=== PATIENT | male | born 1995 | race Caucasian/White ===

== ENCOUNTER 2016-10-03 09:32 | Inpatient (IN) | payer SELFPAY ==
[2016-10-03 10:31] VITALS: BMI 22.1
--- NOTE | 2016-10-03 11:39 | HP ---
COWS - Scale Resting Pulse: 1= [place] 81-100 Sweatin=Flushed/Facial Moisture Restless Observation: 3= Extraneous Movement Pupil Size: 2= Moderately Dilated Bone or Joint Aches: 2= Severe Diffuse Aches Runny Nose/ Eye Tearin= Runny Nose/Eyes GI Upset > 30mins: 3= Vomiting/Diarrhea Tremor Observation: 2= Slight Tremor Visible Yawning Observation: 2= >3x During Session Anxiety or Irritability: 2=Irritable/Anxious Goose Flesh Skin: 0=Smooth Skin COWS Score: 21 CIWA Score - CIWA Score Nausea/Vomitin Muscle Tremors: 3 Anxiety: 3 Agitation: 3 Paroxysmal Sweats: 2 Orientation: 0-Oriented Tacttile Disturbances: 2-Mild Itch/Numbness/Burn Auditory Disturbances: 2-Mild Harshness/Frighten Visual Disturbances: 2-Mild Sensitivity Headache: 2-Mild CIWA-Ar Total Score: 22 Admission ROS BHS - HPI Chief Complaint: i need help to stop using heroin,xanax,marijuana Allergies/Adverse Reactions: Allergies Allergy/AdvReac Type Severity Reaction Status Date / Time No Known Allergies Allergy Verified 10/03/16 11:37 History of Present Illness: this 21 years old male with heroin,xanax and marijuana dependence,withdrawal symptom,seek help for setox,never been in detox before nicotine dependence denied medical problem Exam Limitations: No Limitations - Ebola screening Have you traveled outside of the country in the last 21 days: No Have you had contact with anyone from an Ebola affected area: No Have you been sick,other than usual withdrawal symptoms: No - Review of Systems Constitutional: Chills, Diaphoresis, Loss of Appetite, Night Sweats, Changes in sleep, Weakness EENT: reports: Tearing, Nose Congestion Respiratory: reports: No Symptoms reported Cardiac: reports: Palpitations GI: reports: Diarrhea, Nausea, Vomiting, Abdominal cramping : reports: No Symptoms Reported Musculoskeletal: reports: Back Pain, Joint Pain, Muscle Pain, Joint Stiffness Integumentary: reports: Dryness Neuro: reports: Headache, Tremors Endocrine: reports: No Symptoms Reported Hematology: reports: No Symptoms Reported Psychiatric: reports: No Sypmtoms Reported Patient History - Patient Medical History Hx Anemia: No Hx Asthma: No Hx Chronic Obstructive Pulmonary Disease (COPD): No Hx Cancer: No Hx Cardiac Disorders: No Hx Congestive Heart Failure: No Hx Hypertension: No Hx Hypercholesterolemia: No Hx Pacemaker: No HX Cerebrovascular Accident: No Hx Seizures: No Hx Dementia: No Hx Diabetes: No Hx Gastrointestinal Disorders: No Hx Liver Disease: No Hx Genitourinary Disorders: No Hx Sexually Transmitted Disorders: No Hx Renal Disease (ESRD): No Hx Thyroid Disease: No Hx Human Immunodeficiency Virus (HIV): (never been tested) Hx Hepatitis C: No Hx Depression: No Hx Suicide Attempt: No Hx Bipolar Disorder: No Hx Schizophrenia: No Other Medical History: no suicidal,no homicidal - Patient Surgical History Past Surgical History: No - PPD History Previous Implant?: Yes Documented Results: Negative w/o proof Implanted On Prior [facility] Admission?: No PPD to be Administered?: Yes - Smoking Cessation Smoking history: Current every day smoker Have you smoked in the past 12 months: Yes Aproximately how many cigarettes per day: 20 Cigars Per Day: 0 Hx Chewing Tobacco Use: No Initiated information on smoking cessation: Yes 'Breaking Loose' booklet given: 10/03/16 - Substance & Tx. History Hx Alcohol Use: No Hx Substance Use: Yes Substance Use Type: Cocaine, Heroin, Tranquilizers Hx Substance Use Treatment: No - Substances Abused Heroin Route: Inhalation Frequency: Daily Amount used: 4 bags Age of first use: 20 Date of Last Use: 10/03/16 Xanax Route: Oral Frequency: 3-6 times per week Amount used: 2 mg. Age of first use: 20 Date of Last Use: 10/02/16 Marijuana Route: Smoking Frequency: Daily Amount used: $20 Age of first use: 16 Date of Last Use: 10/02/16 Family Disease History - Family Disease History Family History: Denies Admission Physical Exam S - Vital Signs Vital Signs: Vital Signs - 24 hr 10/03/16 10:30 Temperature 97 F L Pulse Rate 99 H Respiratory 20 Rate Blood Pressure 138/87 - Physical General Appearance: Yes: Moderate Distress, Tremorous, Irritable, Sweating, Anxious HEENTM: Yes: Hearing grossly Normal, Normal ENT Inspection, MICHELLE, Pharynx Normal Respiratory: Yes: Lungs Clear, Normal Breath Sounds, No Respiratory Distress Neck: Yes: Within Normal Limits Breast: Yes: Within Normal Limits Cardiology: Yes: Within Normal Limits, Regular Rhythm, Regular Rate, S1, S2 Abdominal: Yes: Within Normal Limits, Normal Bowel Sounds, Non Tender, Flat, Soft Genitourinary: Yes: Within Normal Limits Back: Yes: Muscle Spasm Musculoskeletal: Yes: Within Normal Limits, full range of Motion, Back pain, Muscle Pain Extremities: Yes: Normal Inspection, Normal Range of Motion, Tremors Neurological: Yes: senior payroll specialist II-XII NML intact, Fully Oriented, Alert, Motor Strength 5/5 Integumentary: Yes: Dry Lymphatic: Yes: Within Normal Limits - Diagnostic (1) Opioid dependence with withdrawal Current Visit: Yes Status: Acute (2) Uncomplicated sedative, hypnotic or anxiolytic withdrawal Current Visit: Yes Status: Acute (3) Cannabis dependence Current Visit: Yes Status: Acute (4) Nicotine dependence Current Visit: Yes Status: Acute Cleared for Admission [facility] - Detox or Rehab [facility] Level of Care: Medically Managed Detox Regimen/Protocol: Methadone/Valium [facility] Breath Alcohol Content Breath Alcohol Content: 0 Urine Drug Screen - Results Drug Screen Negative: No Urine Drug Screen Results: THC-Marijuana, ANNE MARIE-Cocaine, OPI-Opiates, BZO- Benzodiazepines
[2016-10-03] MEDS ORDERED: guaiFENesin/D-METHORPHAN HB 10 ML UNIT-DOSE CUPS PO PRN (13:14)
[2016-10-03] MEDS ORDERED: MENTHOL/PHENOL 1 EACH UD MM PRN (13:14)
[2016-10-03] MEDS ORDERED: LOPERAMIDE HCL 2 MG CAPSULE PO PRN (13:14)
[2016-10-03] MEDS ORDERED: IBUPROFEN 400 MG TABLET (FP) PO PRN (13:14)
[2016-10-03] MEDS ORDERED: P-EPHED 60MG/TRIPROLIDI 2.5MG TABLET PO PRN (13:14)
[2016-10-03] MEDS ORDERED: MAG HYDROX/AL HYDROX/SIMETH 30 ML UNIT-DOSE CUP PO PRN (13:14)
[2016-10-03] MEDS ORDERED: MAGNESIUM CITRATE 300 ML BOTTLE PO PRN (13:14)
[2016-10-03] MEDS ORDERED: ACETAMINOPHEN 325 MG TABLET (FP) PO PRN (13:14)
[2016-10-03] MEDS ORDERED: MAGNESIUM HYDROX 2400MG/30ML ORAL SUSPENSION 30 ML CUP PO PRN (13:14)
[2016-10-03] MEDS ORDERED: hydrOXYzine PAMOATE 50 MG CAPSULE (FP) PO PRN (13:14)
[2016-10-03] MEDS: diazePAM 5 MG TABLET PO SCH ×2 (13:59→22:36)
[2016-10-03] MEDS: NICOTINE 21 MG/24 HOURS TOPICAL PATCH TD SCH (13:59)
[2016-10-03] MEDS ORDERED: diazePAM 5 MG TABLET PO ONE (14:00)
[2016-10-03] MEDS ORDERED: METHADONE HCL 10 MG TABLET (FOR DETOX USE ONLY) PO ONE ×2 (14:00→23:00)
[2016-10-03 16:27] LABS: MCH 30.1 pg (25.7-33.7); MCHC 33.1 g/dl (32.0-35.9); MEAN CELL VOLUME 91.1 fl (80-96); MEAN PLT VOLUME 9.9 fl (7.5-11.1); PLATELET COUNT 231 K/MM3 (134-434); RDW 13.3 % (11.9-15.9); WHITE BLOOD COUNT 11.6 K/mm3 (4.0-10.0)
[2016-10-03 16:37] LABS: ALBUMIN 4.1 g/dl (3.4-5.0); ALK PHOS 90 U/L (45-117); ANION GAP 9 (8-16); BILIRUBIN,TOTAL 0.3 mg/dL (0.2-1.0); CO2 27 mmol/L (21-32); COCKROFT - GAULT 139.38; CREATININE 0.8 mg/dL (0.7-1.3); GLUCOSE,RANDOM 129 mg/dL (74-106); SGOT/AST 63 U/L (15-37); SGPT/ALT 87 U/L (12-78); TOT PROT 7.3 g/dl (6.4-8.2)
[2016-10-03 17:04] LABS: URINE APPEARANCE CLOUDY; URINE BILIRUBIN NEGATIVE (NEGATIVE); URINE BLOOD NEGATIVE (NEGATIVE); URINE COLOR YELLOW; URINE GLUCOSE (UA) NEGATIVE (NEGATIVE); URINE KETONE NEGATIVE (NEGATIVE); URINE LEUK ESTERASE NEGATIVE (NEGATIVE); URINE NITRITE NEGATIVE (NEGATIVE); URINE UROBILINOGEN NEGATIVE E.U./dl (0.2-1.0)
[2016-10-03 17:05] LABS: URINE PROTEIN 1+ (NEGATIVE)
[2016-10-03] MEDS: diazePAM 5 MG TABLET PO PRN (17:37)
[2016-10-03] MEDS: NICOTINE POLACRILEX 2 MG GUM BC PRN (17:38)
[2016-10-03 17:42] LABS: URINE BACTERIA RARE /hpf (NONE SEEN); URINE MUCUS RARE; URINE RBC 8 /hpf (0-3); URINE WBC 14 /hpf (3-5); YEAST MANY
[2016-10-03] MEDS: THIAMINE HCL 100 MG TABLET (FP) PO SCH (22:36)
[2016-10-03] MEDS: diphenhydrAMINE HCL 50 MG CAPSULE PO PRN (22:37)
[2016-10-04] MEDS: diazePAM 5 MG TABLET PO PRN ×2 (05:30→10:31)
[2016-10-04] MEDS: diazePAM 5 MG TABLET PO SCH ×3 (05:45→22:23)
[2016-10-04] MEDS ORDERED: METHADONE HCL 10 MG TABLET (FOR DETOX USE ONLY) PO SCH (10:00)
[2016-10-04] MEDS: PRENATAL VITAMINS W/ FOLIC ACID TABLET (FP) PO SCH (10:35)
[2016-10-04] MEDS: NICOTINE 21 MG/24 HOURS TOPICAL PATCH TD SCH (10:35)
--- NOTE | 2016-10-04 10:38 | PN ---
[facility] CIWA - CIWA Score Nausea/Vomitin-No Nausea/No Vomiting Muscle Tremors: 4-Moderate,w/Arms Extend Anxiety: 3 Agitation: 3 Paroxysmal Sweats: 3 Orientation: 0-Oriented Tacttile Disturbances: 0-None Auditory Disturbances: 0-None Visual Disturbances: 0-None Headache: 0-None Present CIWA-Ar Total Score: 13 [facility] COWS - Scale Resting Pulse: 1= [place] 81-100 Sweatin=Flushed/Facial Moisture Restless Observation: 1= Difficult to Sit Still Pupil Size: 0= Normal to Room Light Bone or Joint Aches: 1= Mild Discomfort Runny Nose/ Eye Tearin= Runny Nose/Eyes GI Upset > 30mins: 2= Nausea/Diarrhea Tremor Observation of Outstretched Hands: 2= Slight Tremor Visible Yawning Observation: 1= 1-2x During Session Anxiety or Irritability: 2=Irritable/Anxious Goose Flesh Skin: 0=Smooth Skin COWS Score: 14 [facility] Progress Note (SOAP) Subjective: Anxiety,tremors,sweating,interrupted sleep,restless,muscle aches. Objective: 10/04/16 10:36 Last Vital Signs Temp Pulse Resp BP Pulse Ox 97.4 F L 91 H 20 145/84 10/04/16 09:25 10/04/16 09:25 10/04/16 09:25 10/04/16 09:25 Laboratory Last Values WBC 11.6 K/mm3 (4.0-10.0) H 10/03/16 10:00 RBC 4.94 M/mm3 (4.00-5.60) 10/03/16 10:00 Hgb 14.9 GM/dL (11.7-16.9) 10/03/16 10:00 Hct 45.0 % (35.4-49) 10/03/16 10:00 MCV 91.1 fl (80-96) 10/03/16 10:00 MCHC 33.1 g/dl (32.0-35.9) 10/03/16 10:00 RDW 13.3 % (11.9-15.9) 10/03/16 10:00 Plt Count 231 K/MM3 (134-434) 10/03/16 10:00 MPV 9.9 fl (7.5-11.1) 10/03/16 10:00 Sodium 141 mmol/L (136-145) 10/03/16 10:00 Potassium 4.3 mmol/L (3.5-5.1) 10/03/16 10:00 Chloride 105 mmol/L (98-107) 10/03/16 10:00 Carbon Dioxide 27 mmol/L (21-32) 10/03/16 10:00 Anion Gap 9 (8-16) 10/03/16 10:00 BUN 9 mg/dL (7-18) 10/03/16 10:00 Creatinine 0.8 mg/dL (0.7-1.3) 10/03/16 10:00 Creat Clearance w eGFR > 60 (>60) 10/03/16 10:00 Random Glucose 129 mg/dL (74-106) H 10/03/16 10:00 Calcium 9.0 mg/dL (8.5-10.1) 10/03/16 10:00 Total Bilirubin 0.3 mg/dL (0.2-1.0) 10/03/16 10:00 AST 63 U/L (15-37) H 10/03/16 10:00 ALT 87 U/L (12-78) H 10/03/16 10:00 Alkaline Phosphatase 90 U/L (45-117) 10/03/16 10:00 Total Protein 7.3 g/dl (6.4-8.2) 10/03/16 10:00 Albumin 4.1 g/dl (3.4-5.0) 10/03/16 10:00 Urine Color Yellow 10/03/16 15:00 Urine Appearance Cloudy 10/03/16 15:00 Urine pH 7.0 (5.0-8.0) 10/03/16 15:00 Ur Specific [place] 1.020 (1.001-1.035) 10/03/16 15:00 Urine Protein 1+ (NEGATIVE) H 10/03/16 15:00 Urine Glucose (UA) Negative (NEGATIVE) 10/03/16 15:00 Urine Ketones Negative (NEGATIVE) 10/03/16 15:00 Urine Blood Negative (NEGATIVE) 10/03/16 15:00 Urine Nitrite Negative (NEGATIVE) 10/03/16 15:00 Urine Bilirubin Negative (NEGATIVE) 10/03/16 15:00 Urine Urobilinogen Negative E.U./dl (0.2-1.0) 10/03/16 15:00 Ur Leukocyte Esterase Negative (NEGATIVE) 10/03/16 15:00 Urine RBC 8 /hpf (0-3) 10/03/16 15:00 Urine WBC 14 /hpf (3-5) 10/03/16 15:00 Ur Epithelial Cells Rare /hpf (FEW) 10/03/16 15:00 Urine Bacteria Rare /hpf (NONE SEEN) 10/03/16 15:00 Urine Mucus Rare 10/03/16 15:00 Urine Yeast Many 10/03/16 15:00 labs noted,repeat U/A Assessment: 10/04/16 10:37 Withdrawal sx. Plan: Continue detox
[2016-10-04] MEDS: NICOTINE POLACRILEX 2 MG GUM BC PRN ×4 (10:52→22:44)
--- NOTE | 2016-10-04 11:49 | EKG ---
Test Reason : Blood Pressure : / mmHG Vent. Rate : 079 BPM Atrial Rate : 079 BPM P-R Int : 130 ms QRS Dur : 106 ms QT Int : 374 ms P-R-T Axes : 040 095 049 degrees QTc Int : 428 ms NORMAL SINUS RHYTHM RIGHTWARD AXIS BORDERLINE ECG NO PREVIOUS ECGS AVAILABLE Confirmed by DENIS LEGGETT, BRIDGETTE ([id number]) on 10/04/2016 11:48:51 AM Referred By: Michael Tate Confirmed By:BRIDGETTE BARRIOS MD
[2016-10-04 13:49] LABS: HIV 1 & 2 AB NEGATIVE; HIV 1 AGp24 NEGATIVE
[2016-10-04 17:41] LABS: URINE APPEARANCE CLEAR; URINE BILIRUBIN NEGATIVE (NEGATIVE); URINE BLOOD NEGATIVE (NEGATIVE); URINE COLOR COLORLESS; URINE GLUCOSE (UA) NEGATIVE (NEGATIVE); URINE KETONE NEGATIVE (NEGATIVE); URINE LEUK ESTERASE NEGATIVE (NEGATIVE); URINE NITRITE NEGATIVE (NEGATIVE); URINE PROTEIN NEGATIVE (NEGATIVE); URINE UROBILINOGEN NEGATIVE E.U./dl (0.2-1.0)
[2016-10-04] MEDS: THIAMINE HCL 100 MG TABLET (FP) PO SCH (22:23)
[2016-10-04] MEDS: diphenhydrAMINE HCL 50 MG CAPSULE PO PRN (22:23)
[2016-10-05] MEDS: diphenhydrAMINE HCL 50 MG CAPSULE PO PRN ×2 (01:27→22:28)
[2016-10-05] MEDS: diazePAM 5 MG TABLET PO PRN ×2 (05:41→17:17)
[2016-10-05] MEDS: PRENATAL VITAMINS W/ FOLIC ACID TABLET (FP) PO SCH (09:51)
[2016-10-05] MEDS: NICOTINE 21 MG/24 HOURS TOPICAL PATCH TD SCH (09:51)
[2016-10-05] MEDS: diazePAM 5 MG TABLET PO SCH ×2 (09:52→22:28)
[2016-10-05] MEDS ORDERED: METHADONE HCL 5 MG TABLET (FOR DETOX USE ONLY) PO SCH (10:00)
[2016-10-05] MEDS: NICOTINE POLACRILEX 2 MG GUM BC PRN ×3 (11:40→22:40)
--- NOTE | 2016-10-05 11:46 | PN ---
[facility] CIWA - CIWA Score Nausea/Vomitin-No Nausea/No Vomiting Muscle Tremors: 4-Moderate,w/Arms Extend Anxiety: 4-Mod. Anxious/Guarded Agitation: 4-Moderately Restless Paroxysmal Sweats: 1-Minimal Palms Moist Orientation: 0-Oriented Tacttile Disturbances: 3-Moderate Itch/Numb/Burn Auditory Disturbances: 0-None Visual Disturbances: 0-None Headache: 0-None Present CIWA-Ar Total Score: 16 BHS COWS - Scale Resting Pulse: 0= [place] 80 or Below Sweatin= Chills/Flushing Restless Observation: 3= Extraneous Movement Pupil Size: 2= Moderately Dilated Bone or Joint Aches: 4=Acute Joint/Muscle Pain Runny Nose/ Eye Tearin= Runny Nose/Eyes GI Upset > 30mins: 1= Stomach Cramp Tremor Observation of Outstretched Hands: 1= Tremor [place], Not Seen Yawning Observation: 1= 1-2x During Session Anxiety or Irritability: 2=Irritable/Anxious Goose Flesh Skin: 0=Smooth Skin COWS Score: 17 [facility] Progress Note (SOAP) Subjective: ANXIETY,SWEATS,TREMORS,INTERMITTENT SLEEP. Objective: 10/05/16 11:45 Vital Signs Temperature 95.8 F L 10/05/16 10:00 Pulse Rate 74 10/05/16 10:00 Respiratory Rate 18 10/05/16 10:00 Blood Pressure 131/90 10/05/16 10:00 O2 Sat by Pulse Oximetry (%) Laboratory Last Values WBC 11.6 K/mm3 (4.0-10.0) H 10/03/16 10:00 RBC 4.94 M/mm3 (4.00-5.60) 10/03/16 10:00 Hgb 14.9 GM/dL (11.7-16.9) 10/03/16 10:00 Hct 45.0 % (35.4-49) 10/03/16 10:00 MCV 91.1 fl (80-96) 10/03/16 10:00 MCHC 33.1 g/dl (32.0-35.9) 10/03/16 10:00 RDW 13.3 % (11.9-15.9) 10/03/16 10:00 Plt Count 231 K/MM3 (134-434) 10/03/16 10:00 MPV 9.9 fl (7.5-11.1) 10/03/16 10:00 Sodium 141 mmol/L (136-145) 10/03/16 10:00 Potassium 4.3 mmol/L (3.5-5.1) 10/03/16 10:00 Chloride 105 mmol/L (98-107) 10/03/16 10:00 Carbon Dioxide 27 mmol/L (21-32) 10/03/16 10:00 Anion Gap 9 (8-16) 10/03/16 10:00 BUN 9 mg/dL (7-18) 10/03/16 10:00 Creatinine 0.8 mg/dL (0.7-1.3) 10/03/16 10:00 Creat Clearance w eGFR > 60 (>60) 10/03/16 10:00 POC Glucometer 85 UNITS (()) 10/05/16 05:38 Random Glucose 129 mg/dL (74-106) H 10/03/16 10:00 Calcium 9.0 mg/dL (8.5-10.1) 10/03/16 10:00 Total Bilirubin 0.3 mg/dL (0.2-1.0) 10/03/16 10:00 AST 63 U/L (15-37) H 10/03/16 10:00 ALT 87 U/L (12-78) H 10/03/16 10:00 Alkaline Phosphatase 90 U/L (45-117) 10/03/16 10:00 Total Protein 7.3 g/dl (6.4-8.2) 10/03/16 10:00 Albumin 4.1 g/dl (3.4-5.0) 10/03/16 10:00 Urine Color Colorless 10/04/16 13:00 Urine Appearance Clear 10/04/16 13:00 Urine pH 9.0 (5.0-8.0) H D 10/04/16 13:00 Ur Specific [place] 1.006 (1.001-1.035) 10/04/16 13:00 Urine Protein Negative (NEGATIVE) 10/04/16 13:00 Urine Glucose (UA) Negative (NEGATIVE) 10/04/16 13:00 Urine Ketones Negative (NEGATIVE) 10/04/16 13:00 Urine Blood Negative (NEGATIVE) 10/04/16 13:00 Urine Nitrite Negative (NEGATIVE) 10/04/16 13:00 Urine Bilirubin Negative (NEGATIVE) 10/04/16 13:00 Urine Urobilinogen Negative E.U./dl (0.2-1.0) 10/04/16 13:00 Ur Leukocyte Esterase Negative (NEGATIVE) 10/04/16 13:00 Urine RBC 8 /hpf (0-3) 10/03/16 15:00 Urine WBC 14 /hpf (3-5) 10/03/16 15:00 Ur Epithelial Cells Rare /hpf (FEW) 10/03/16 15:00 Urine Bacteria Rare /hpf (NONE SEEN) 10/03/16 15:00 Urine Mucus Rare 10/03/16 15:00 Urine Yeast Many 10/03/16 15:00 RPR Titer Nonreactive (NONREACTIVE) 10/03/16 10:00 HIV 1&2 Antibody Screen Negative 10/03/16 10:00 HIV P24 Antigen Negative 10/03/16 10:00 Assessment: 10/05/16 11:45 WITHDRAWAL SX Plan: CONTINUE DETOX INCREASE PO FLUIDS
[2016-10-05] MEDS: THIAMINE HCL 100 MG TABLET (FP) PO SCH (22:28)
[2016-10-06] MEDS: diazePAM 5 MG TABLET PO PRN (05:51)
[2016-10-06] MEDS ORDERED: METHADONE HCL 10 MG TABLET (FOR DETOX USE ONLY) PO SCH (10:00)
[2016-10-06] MEDS: diazePAM 5 MG TABLET PO SCH (10:46)
[2016-10-06] MEDS: NICOTINE 21 MG/24 HOURS TOPICAL PATCH TD SCH (10:46)
[2016-10-06] MEDS: PRENATAL VITAMINS W/ FOLIC ACID TABLET (FP) PO SCH (10:46)
[2016-10-06 13:40] VITALS: BP 136/80; PULSE 107; TEMP 97.1
[2016-10-06] MEDS: NICOTINE POLACRILEX 2 MG GUM BC PRN (14:01)
--- NOTE | 2016-10-06 16:06 | DS ---
[facility] Detox Discharge Summary Admission Date: 10/03/16 Discharge Date: 10/06/16 - History Present History: Cannabis Dependence, Opioid Dependence, Sedative Dependence Additional Comments: PATIENT ADMINISTRATIVELY DISCHARGED FROM UNIT. PATIENT FOUND TO BE ACTIVELY SMOKING ON UNIT DESPITE PREVIOUS WARNING NOT TO DO SO. ADVISED PATIENT TO FOLLOW-UP WITH [facility] FOR GENERAL MEDICAL ASSESSMENT. - Physical Exam Results Vital Signs: Vital Signs Temperature 97.1 F L 10/06/16 13:39 Pulse Rate 107 H 10/06/16 13:39 Respiratory Rate 20 10/06/16 13:39 Blood Pressure 136/80 10/06/16 13:39 O2 Sat by Pulse Oximetry (%) Pertinent Admission Physical Exam Findings: WITHDRAWAL SYMPTOMS. Laboratory Last Values WBC 11.6 K/mm3 (4.0-10.0) H 10/03/16 10:00 RBC 4.94 M/mm3 (4.00-5.60) 10/03/16 10:00 Hgb 14.9 GM/dL (11.7-16.9) 10/03/16 10:00 Hct 45.0 % (35.4-49) 10/03/16 10:00 MCV 91.1 fl (80-96) 10/03/16 10:00 MCHC 33.1 g/dl (32.0-35.9) 10/03/16 10:00 RDW 13.3 % (11.9-15.9) 10/03/16 10:00 Plt Count 231 K/MM3 (134-434) 10/03/16 10:00 MPV 9.9 fl (7.5-11.1) 10/03/16 10:00 Sodium 141 mmol/L (136-145) 10/03/16 10:00 Potassium 4.3 mmol/L (3.5-5.1) 10/03/16 10:00 Chloride 105 mmol/L (98-107) 10/03/16 10:00 Carbon Dioxide 27 mmol/L (21-32) 10/03/16 10:00 Anion Gap 9 (8-16) 10/03/16 10:00 BUN 9 mg/dL (7-18) 10/03/16 10:00 Creatinine 0.8 mg/dL (0.7-1.3) 10/03/16 10:00 Creat Clearance w eGFR > 60 (>60) 10/03/16 10:00 POC Glucometer 97 UNITS (()) 10/06/16 06:10 Random Glucose 129 mg/dL (74-106) H 10/03/16 10:00 Calcium 9.0 mg/dL (8.5-10.1) 10/03/16 10:00 Total Bilirubin 0.3 mg/dL (0.2-1.0) 10/03/16 10:00 AST 63 U/L (15-37) H 10/03/16 10:00 ALT 87 U/L (12-78) H 10/03/16 10:00 Alkaline Phosphatase 90 U/L (45-117) 10/03/16 10:00 Total Protein 7.3 g/dl (6.4-8.2) 10/03/16 10:00 Albumin 4.1 g/dl (3.4-5.0) 10/03/16 10:00 Urine Color Colorless 10/04/16 13:00 Urine Appearance Clear 10/04/16 13:00 Urine pH 9.0 (5.0-8.0) H D 10/04/16 13:00 Ur Specific [place] 1.006 (1.001-1.035) 10/04/16 13:00 Urine Protein Negative (NEGATIVE) 10/04/16 13:00 Urine Glucose (UA) Negative (NEGATIVE) 10/04/16 13:00 Urine Ketones Negative (NEGATIVE) 10/04/16 13:00 Urine Blood Negative (NEGATIVE) 10/04/16 13:00 Urine Nitrite Negative (NEGATIVE) 10/04/16 13:00 Urine Bilirubin Negative (NEGATIVE) 10/04/16 13:00 Urine Urobilinogen Negative E.U./dl (0.2-1.0) 10/04/16 13:00 Ur Leukocyte Esterase Negative (NEGATIVE) 10/04/16 13:00 Urine RBC 8 /hpf (0-3) 10/03/16 15:00 Urine WBC 14 /hpf (3-5) 10/03/16 15:00 Ur Epithelial Cells Rare /hpf (FEW) 10/03/16 15:00 Urine Bacteria Rare /hpf (NONE SEEN) 10/03/16 15:00 Urine Mucus Rare 10/03/16 15:00 Urine Yeast Many 10/03/16 15:00 RPR Titer Nonreactive (NONREACTIVE) 10/03/16 10:00 HIV 1&2 Antibody Screen Negative 10/03/16 10:00 HIV P24 Antigen Negative 10/03/16 10:00 LABS NOTED. - Treatment Hospital Course: Detoxed Safely - Medication Discharge Medications: Ambulatory Orders NK [No Known Home Medication] 10/03/16 - Diagnosis (1) Cannabis dependence Status: Acute (2) Nicotine dependence Status: Chronic Qualifiers: Nicotine product type: cigarettes Substance use status: uncomplicated Qualified Code(s): F17.210 - Nicotine dependence, cigarettes, uncomplicated (3) Opioid dependence with withdrawal Status: Acute (4) Uncomplicated sedative, hypnotic or anxiolytic withdrawal Status: Acute - AMA Did Patient Leave Against Medical Advice: No
[2016-10-07] MEDS ORDERED: diazePAM 5 MG TABLET PO SCH ×2 (06:00→10:00)
[2016-10-07] MEDS ORDERED: METHADONE HCL 5 MG TABLET (FOR DETOX USE ONLY) PO SCH (06:00)
[2016-10-07] MEDS ORDERED: METHADONE HCL 10 MG TABLET (FOR DETOX USE ONLY) PO SCH (10:00)
[2016-10-08] MEDS ORDERED: METHADONE HCL 5 MG TABLET (FOR DETOX USE ONLY) PO SCH (06:00)
== END 2016-10-06 15:51 | disposition home or self-care (01) | DRG 773 ==
LOC: YASAS 09:32 → Y3N 11:53
PROVIDERS: ADMIT Internal Medicine; ATTEND Internal Medicine
PROC: HZ2ZZZZ Detoxification Services for Substance Abuse Treatment (ICD-10-PCS; principal; 2016-10-06)
DX: F11.23 Opioid dependence with withdrawal (principal); F13.230 Sedative, hypnotic or anxiolytic dependence with withdrawal, uncomplicated; F12.20 Cannabis dependence, uncomplicated; F17.210 Nicotine dependence, cigarettes, uncomplicated
CPT/HCPCS: 80053; 81003; 81015; 85027; 86593; 87389; 93005; 93010